=== PATIENT | male | born 1955 | race Caucasian/White ===

== ENCOUNTER 2020-10-25 07:30 | Emergency (ER) | payer BC ==
[~2020-10-25] VITALS: Ht 177.8 cm; Wt 72.6 kg
--- NOTE | 2020-10-25 07:38 | NUR ---
Dr Bridges seen and examined the pt.
[2020-10-25] MEDS ORDERED: LORAZEPAM 2 MG/1 ML VIAL ONE (07:40)
[2020-10-25] MEDS ORDERED: LORAZEPAM 2 MG/1 ML VIAL IM ONE (07:45)
[2020-10-25] MEDS ORDERED: OLANZAPINE 10 MG VIAL IM ONE ×2 (07:55→08:00)
--- NOTE | 2020-10-25 08:15 | NUR ---
Patient is now relaxed and appears comfortable with no acute distress. Ativan 2 mg at around 0740 and Zyprexa 10 mg IM given at around 0800. Pt has been placed on his L side, aspiration precautions and in place. Side rails up x 2, bed locked in position. Monitored for safety.
[2020-10-25 08:20] LABS: BASOPHILS # (AUTO) 0.1 K/uL (0.0-8.0); BASOPHILS % (AUTO) 0.6 % (0.0-2.0); EOSINOPHILS # (AUTO) 0.2 K/uL (0.0-0.7); EOSINOPHILS % (AUTO) 2.1 % (0.0-7.0); HEMATOCRIT 43.3 % (36.7-47.1); HEMOGLOBIN 14.2 g/dL (12.5-16.3); LYMPHOCYTES # (AUTO) 3.1 K/uL (20.0-40.0); LYMPHOCYTES % (AUTO) 29.6 % (20.5-51.5); MEAN CORPUSCULAR HEMOGLOBIN 30.2 uug (23.8-33.4); MEAN CORPUSCULAR HGB CONC 33 g/dL (32.5-36.3); MEAN CORPUSCULAR VOLUME 92.5 fL (73.0-96.2); MONOCYTES # (AUTO) 0.6 K/uL (2.0-10.0); MONOCYTES % (AUTO) 6.1 % (0.0-11.0); NEUTROPHILS # (AUTO) 6.5 K/uL (1.8-8.9); NEUTROPHILS % (AUTO) 61.6 % (38.5-71.5); PLATELET COUNT (AUTO) 304 K/uL (152-348); RED BLOOD CELL COUNT(AUTO) 4.68 MIL/uL (4.06-5.63); WHITE BLOOD COUNT (AUTO) 10.5 K/uL (3.6-10.2)
[2020-10-25 08:23] LABS: CARBON DIOXIDE 25 mmol/L (21-32); CHLORIDE 106 mmol/L (98-107); CREATININE 0.8 mg/dL (0.6-1.3); GLUCOSE 144 mg/dL (74-106); POTASSIUM 3.1 mmol/L (3.5-5.1); UREA NITROGEN, BLOOD 12 mg/dL (7-18)
[2020-10-25 08:28] LABS: ETHANOL < 3 MG/DL (0-0)
[2020-10-25 08:37] LABS: ALANINE AMINOTRANSFERASE 25 U/L (16-63); ALKALINE PHOSPHATASE 123 U/L (50-136); ASPARTATE AMINOTRANSFERASE 20 U/L (15-37); BILIRUBIN,DIRECT 0.1 mg/dL (0.0-0.2); BILIRUBIN,TOTAL 0.4 mg/dL (0.2-1.0); TOTAL PROTEIN, SERUM 7.9 g/dL (6.4-8.2)
[2020-10-25 08:38] LABS: ACETAMINOPHEN < 2.0 ug/mL (10-30)
--- NOTE | 2020-10-25 09:15 | NUR ---
Pt is at bedside. Pt continues to remain comfortable at this time ,with VS stable. Monitored. Still slightly tachycardic but lower than before. Pt is sleeping at this time, unable to follow commands, to get urine sample.
--- NOTE | 2020-10-25 11:54 | NUR ---
Pt is now more awake, unable to get urine sample though still and still with unsteady gait. Water provided to patient, will try to get urine sample after.
--- NOTE | 2020-10-25 12:45 | NUR ---
Pt is now fully AO x 4, able to ambulated with steady gait to bathroom. Urine sample sent to lab.
[2020-10-25 12:56] LABS: *BILIRUBIN,URIN NEGATIVE (NEGATIVE); *BLOOD, URINE NEGATIVE (NEGATIVE); *CLARITY,URINE CLEAR (CLEAR); *COLOR,URINE YELLOW (YELLOW); *KETONES,URINE TRACE (NEGATIVE); LEUKOCYTE ESTERASE ,URINE NEGATIVE (NEGATIVE); NITRITE, URINE NEGATIVE (NEGATIVE); PH,URINE 6.5 (5.0-8.0); UGLUCOSE NEGATIVE (NEGATIVE)
[2020-10-25 13:10] LABS: *AMPHETAMINE, URINE POSITIVE (NEGATIVE); *CANNABINOID, URINE NEGATIVE (NEGATIVE); *COCCAINE, URINE NEGATIVE (NEGATIVE); *OPIATE, URINE NEGATIVE (NEGATIVE); *PHENCYCLIDINE SCREEN,URINE NEGATIVE (NEGATIVE)
--- NOTE | 2020-10-25 13:21 | NUR ---
Patient has been cleared for DC by ER MD. Written and verbal after care instructions given. Patient verbalizes understanding of instructions. Stressed follow up or return to ER for worsening s/s. Ambulated out of ED in steady gait. Patient discharged to home in stable condition. All belongings with patient, patient provided with a new shirt after him getting it wet with sweat.
[2020-10-25 13:22] VITALS: BP 135/65
== END 2020-10-25 13:23 | disposition home or self-care (01) ==
LOC: ER 07:30
DX: F15.121 Other stimulant abuse with intoxication delirium (principal); F15.159 Other stimulant abuse with stimulant-induced psychotic disorder, unspecified
CPT/HCPCS: 36415; 80048; 80076; 80299; 80307; 80320; 81003; 85025; 96372 ×2; 99291; J2060; A4663; G0480; J2358